=== PATIENT | female | born 1965 | race Caucasian/White ===

== ENCOUNTER 2016-06-14 13:16 | Emergency (ER) | payer OTHER ==
[~2016-06-14] VITALS: Ht 157.5 cm; Wt 108.9 kg
[~2016-06-14 13:16] MED LIST: AUGMENTIN 875 M1 TAB PO; BENZONATATE200 MG PO; BLM PO; FLEXERIL10 MG PO; HYCET 325 MG/1473 ML PO; LOVENOX 4040 MG/0.4 SC; MEDROL DOSEPAK1 PAC PO; MOBIC15 M1 PO; MOBIC15 MG PO; OMEPRAZOLE D/R20 MG PO; PERCOCET 325 MG1 TA2 PO; PROVENTIL0.09 MG/A1 INH; ROBITUSSIN COU237 ML PO; ROBITUSSIN W/CO10 ML PO; TRAMADOL50 MG PO; VICODIN 5-3001 EACH PO; VICODIN5-300 PO
--- NOTE | 2016-06-14 13:31 | ED UPPER/LOWER EXTREMITY COMPL ---
History of Present Illness General Chief Complaint: Lower Extremity Injury Stated Complaint: RT KNEE PAIN Source: patient, old records Exam Limitations: no limitations Vital Signs & Intake/Output Vital Signs & Intake/Output ED Intake and Output 06/15 0000 06/14 1200 Intake Total Output Total Balance Patient 240 lb Weight Weight Reported by Patient Measurement Method Allergies Coded Allergies: erythromycin base (TONGUE SWELLING 06/14/16) Reconcile Medications No Known Home Medications Triage Note: [address] "[address]" [address] AT WORK SUNDAY. WAS EVAL'D AT [employer] ONE AND STATES THEY TOLD HER IT WAS A SPRAIN. STATES SWELLING CONTINUES. AMBULATORY WITH STEADY GAIT. DECLINES OFFER OF MEDS/WHEELCHAIR. WORKMANS COMP COMPLETED Triage Nurses Notes Reviewed? yes Onset: Gradual Duration: day(s): (2), constant Timing: recent history Severity: mild, moderate Severity Numbers: 6 Pain/Injury Location: Right: Knee. Method of Injury: TWISTED Modifying Factors: Improves With: rest. Worsens With: movement. Associated Symptoms: swelling HPI: 50-year-old female presents to ER for evaluation complaining of medial right knee pain aching swelling constant associated with swelling for the past 3 days after she states she twisted her knee while at work. The patient states she went to an urgent care was diagnosed with a sprain. She states that she has been icing elevating and resting however the symptoms worsen. She denies fall to the ground. She denies numbness or tingling no swelling to her calf or calf pain. No hip or foot or ankle pain and no radiation of pain no chest pain shortness of breath no modifying factors or associated symptoms otherwise. (ROSALIND SWANSON) Past History Travel History Traveled to [place] past 21 day No Medical History Any Pertinent Medical History? 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 No (ROSALIND SWANSON) Review of Systems Review of Systems Constitutional: Reports: see HPI. All Other Systems: Reviewed and Negative Comments Review of systems: See HPI, All other systems negative. Constitutional, no chills no fever, no malaise HEENT: No visual changes no sore throat no congestion Cardiovascular: No chest pain , no palpitation Skin: no rashes, no change in skin Respiratory: No dyspnea no cough no sputum GI: No nausea no vomiting, no diarrhea, : No dysuria Muscle skeletal: joint pain, joint swelling, no back pain, no neck pain, Neurologic: No numbness no headache Psych: No stress Heme/endocrine: No bruising Immunology: No lymphadenopathy (ROSALIND SWANSON) Physical Exam Physical Exam General Appearance: well developed/nourished, alert, awake Comments: Well-developed well-nourished patient in no apparent distress. HEENT: Atraumatic, extraocular motion intact Neck: Supple, FROM Back: FROM Cardiovascular: Regular rate and rhythms no murmurs rubs or gallops, Respiratory: Chest nontender.There were no bony deformities, no asymmetry. No respiratory distress. Patient speaking in full complete sentences. Breath sounds clear to auscultation bilaterally: NO W/R/R Upper Extremities: full range of motion Hip/Pelvis: Atraumatic/Stable. FROM. Knee: Atraumatic/stable. mild tenderness medial r knee, No joint swelling, no effusion. No laxity. Negative alisa/anterior drawer test. pain with ROM Leg: Atraumatic. Nontender. No edema, 5 out of 5 strength in the lower extremity, normal dorsiflexion of great toe bilaterally, gross sensation is intact Ankle/Foot: Atraumatic/stable. Skin intact. FROM. No swelling, no effusion. No laxity on exam Pulses: Normal/equal DP/PT pulses bilaterally. Brisk cap refill Neuro: awake, alert, and oriented to person, place and time. There were no obvious focal neurologic abnormalities. Skin: Warm & dry;No appreciable rash on exposed skin Psych: Mood affect normal, normal memory normal judgment. (ROSALIND SWANSON) Progress Differential Diagnosis: compartment syndrome, contusion, dislocation, DVT, fracture, gout, sprain, tendon injury Plan of Care: Orders Procedure Date/time Status Durable Medical Equipment 06/14 1408 Active pt declining anythning for pain when offered. I discussed with the patient at length all of their results, crutches and leg immobilizer provided. I had an extensive conversation regarding need for close follow up with their primary care physician this week as well as return precautions. I answered all of their questions, they feel comfortable with the plan and follow-up care. (ROSALIND SWANSON) Diagnostic Imaging: Viewed by Me: Radiology Read. Discussed w/RAD: Radiology Read. Radiology Impression: PATIENT: LES TODD PRESENT AGE: 50 PATIENT ACCOUNT NO: [id number] : 65 LOCATION: [facility] ORDERING PHYSICIAN: ROSALIND FLANAGAN SERVICE DATE: 06/14/16 EXAM TYPE: RAD - XRY-KNEE COMPLETE RIGHT EXAMINATION: XR KNEE, RIGHT CLINICAL INFORMATION: Pain status-post twisting injury. COMPARISON: Right knee radiographs dated 10/09. TECHNIQUE: Frontal, bilateral oblique and lateral views of the right knee are submitted. FINDINGS: Bony alignment and mineralization are normal. The lateral and medial joint space compartments and the patellofemoral compartment are well-maintained. No acute fracture, dislocation or joint effusion is seen. An old Mis-Stieda lesion is redemonstrated at the site of the medial collateral ligament attachment onto the medial femoral condyle. There is no foreign body. IMPRESSION: 1. No right knee acute fracture, dislocation or joint effusion is seen. 2. There is a Mis-Stieda lesion redemonstrated, consistent with prior medial collateral ligament injury. DICTATED BY: ENOC SEN MD DATE/TIME DICTATED:06/14/161419 NUTRITION WORKER:YULISSA DATE/TIME TRANSCRIBED:06/14/161419 CONFIDENTIAL, DO NOT COPY WITHOUT APPROPRIATE AUTHORIZATION. <Electronically signed in Other Vendor System> SIGNED BY: ENOC SEN MD 06/14/161426 (ROSALIND SWANSON) Departure Departure Disposition: HOME OR SELF CARE Condition: Stable Clinical Impression Primary Impression: Knee sprain Referrals: ANY HOWARD APRN (PCP/Family) ISAURO DIAZ,FACUNDO Dean Additional Instructions: REST, ICE, TYLENOL OR MOTRIN FOR PAIN. FOLLOW UP WITH ORTHOPEDIST DR BOX OR YOUR PMD NEXT WEEK IF SYMPTOMS PERSIST. CRUTCHES WHEN AMBULATORY, KNEE BRACE DISCUSSED. 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 I have also reviewed all the pertinent lab results and diagnostic results. I agree with the findings and the plan of care as documented in the PA's/SMALL ARMS ARTILLERY REPAIRER's documentation. X I have reviewed the ED Record and agree with the PA's/SMALL ARMS ARTILLERY REPAIRER's documentation. [] Additions or exceptions (if any) to the PAs/SMALL ARMS ARTILLERY REPAIRER's note and plan are summarized below: [] (DANY DIAZ,NATALIA)
--- NOTE | 2016-06-14 14:27 | RADIOLOGY REPORT ---
EXAMINATION: XR KNEE, RIGHT CLINICAL INFORMATION: Pain status-post twisting injury. COMPARISON: Right knee radiographs dated 10/09/2013. TECHNIQUE: Frontal, bilateral oblique and lateral views of the right knee are submitted. FINDINGS: Bony alignment and mineralization are normal. The lateral and medial joint space compartments and the patellofemoral compartment are well-maintained. No acute fracture, dislocation or joint effusion is seen. An old Mis-Stieda lesion is redemonstrated at the site of the medial collateral ligament attachment onto the medial femoral condyle. There is no foreign body. IMPRESSION: 1. No right knee acute fracture, dislocation or joint effusion is seen. 2. There is a Mis-Stieda lesion redemonstrated, consistent with prior medial collateral ligament injury.
[2016-06-14 15:06] VITALS: BP 138/80
== END 2016-06-14 15:06 ==
LOC: ERH 13:16
DX: S83.91XA Sprain of unspecified site of right knee, initial encounter (principal); X50.9XXA Other and unspecified overexertion or strenuous movements or postures, initial encounter; Y93.9 Activity, unspecified; Y92.9 Unspecified place or not applicable
CPT/HCPCS: 73562-RT

== ENCOUNTER 2016-06-19 14:56 | Emergency (ER) | payer OTHER ==
[~2016-06-19] VITALS: Ht 157.5 cm; Wt 108.9 kg
[2016-06-19 15:11] VITALS: BP 163/91
--- NOTE | 2016-06-19 16:29 | ED HAND/WRIST INJURY COMPLAINT ---
History of Present Illness General Chief Complaint: Hand or Wrist Injury Stated Complaint: FRACTURED FINGER Source: patient, family, old records Exam Limitations: no limitations Vital Signs & Intake/Output Vital Signs & Intake/Output Vital Signs Date Time Temp Pulse Resp B/P B/P Pulse O2 O2 Flow FiO2 Mean Ox Delivery Rate 06/19 1515 97.7 06/19 1511 97.7 64 16 163/91 95 Room Air Allergies Coded Allergies: erythromycin base (TONGUE SWELLING 06/14/16) Reconcile Medications Naproxen 500 MG TABLET 1 TAB PO BID ANTIINFLAMMATORY (Reported) Pantoprazole Sodium 40 MG TABLET.DR 1 TAB PO DAILY PAIN (Reported) Triage Note: PT STATES SHE SAW SENT IN BY PHYSICIAN ONE AND HER RIGHT HAND RING FINGER IS DISLOCATED ANDL FRACTURED. PT STATES SHE WAS AT WORK AND SHE WAS PUSHING HER TABLE AND HER FINGER GOT STUCK ON TOTES THAT HAD BEEN LINED UP Triage Nurses Notes Reviewed? yes Occurred: just prior to arrival Duration: day(s): (1), constant Timing: recent history Injury Environment: home Severity: mild, moderate Severity Numbers: 6 Pain/Injury Location: Right: 4th finger. Context: blow Modifying Factors: Improves With: rest. Worsens With: movement. Associated Symptoms: none HPI: 50-year-old female presents to ER for evaluation status post sustaining injury to her right fourth finger earlier today while at work. The patient states she was pushing a table on her finger got caught and extended backwards. She states she went to an urgent care presents with x-rays. She states she was told at urgent care that she had a dislocated fractured finger and was sent here to be reduced. The patient states she has a previous injury to that finger several years ago which time she believes she broke it however never sought care. She denies any difficulty with range of motion however feels a "pulling" sensation in her distal finger minor pain 3 out of 10. No numbness or tingling she denies any other injury she is right-hand dominant The patient has gel acrylic nails which she states the nail was pulled backwards which is causing her the most of her pain (ROSALIND SWANSON) Past History Travel History Traveled to [place] past 21 day No Medical History Any Pertinent Medical History? 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 No (ROSALIND SWANSON) Review of Systems Review of Systems Constitutional: Reports: see HPI. All Other Systems: Reviewed and Negative Comments Review of systems: See HPI, All other systems negative. Constitutional, no chills no fever, no malaise HEENT: no sore throat no congestion Cardiovascular: No chest pain , no palpitation Skin: no rashes, no change in skin Respiratory: No dyspnea no cough no sputum GI: No nausea no vomiting, Muscle skeletal: joint pain, no joint swelling, no back pain, no neck pain, Neurologic: No numbness no confusion, no headache Psych: No stress Heme/endocrine: No bruising Immunology: No lymphadenopathy (ROSALIND SWANSON) Physical Exam Physical Exam General Appearance: well developed/nourished, alert, awake Hand Left: normal inspection, normal range of motion Hand Right: normal range of motion, tender, 4th finger Comments: Well-developed well-nourished patient in no apparent distress. HEENT: Atraumatic, extraocular motion intact Neck: Supple, FROM Back: FROM Cardiovascular: Regular rate and rhythms no murmurs rubs or gallops, Respiratory: No respiratory distress. Patient speaking in full complete sentences. Breath sounds clear to auscultation bilaterally: NO W/R/R Shoulder: Atraumaic/Stable. FROM . Elbow: Atraumatic/stable. FROM. No laxity Upper arm/Forearm: Atraumatic. Nontender. No edema, 5 out of 5 drafting layout worker strength noted to bilateral upper extremities Hand/Wrist: Tenderness to palpation over the right fourth dorsal finger, patient has full flexion and extension of the finger herself passive and active Atraumatic/stable. Skin intact. FROM Pulses: Normal/equal radial pulses bilaterally. Brisk cap refill LOWER Extremities: full range of motion Neuro: awake, alert, and oriented to person, place and time. There were no obvious focal neurologic abnormalities. Skin: Warm & dry;No appreciable rash on exposed skin Psych: Mood affect normal, normal memory normal judgment. (ROSALIND SWANSON) Progress Differential Diagnosis: contusion, compartment syndrome, dislocation, fracture, sprain Plan of Care: Current Medications Sig/Blanka Start time Last Medication Dose Stop Time Status Admin Oxycodone HCl 5 MG ONCE ONE 06/19 1629 UNVr (Roxicodone) 06/19 1630 The x-ray was reviewed on the report is as follows: RIGHT X-RAY FINGER-MINIMUM 2 VIEWS: Severe chronic fracture with deformity involving the fourth distal phalanx. Deformity of the distal interphalangeal joint. No prior study. IMPRESSION: Chronic fracture with deformity. Recurrent or acute injury not excluded. \\ \\The x-ray was reviewed with Dr. montes who agrees that this is a chronic injury the patient has full range of motion of the finger Dermabond was applied to keep the acrylic nail down in a finger splint was applied which I advised the patient where all times. Discussed with her the possibility of a tendon injury still exists and close follow-up with hand specialist Dr. Acevedo, I advised return anytime sooner with any concerns answered all of her questions she feels comfortable plan cleared for discharge (ROSALIND SWANSON) Departure Departure Time of Disposition: 1653 Disposition: HOME OR SELF CARE Condition: Stable Clinical Impression Primary Impression: Finger sprain Referrals: ANY HOWARD APRN (PCP/Family) JERZY DIAZ,ISHA Additional Instructions: rest, ice, tylenol for pain. finger splint as dsicussed for at least one week. follow up with hand specialist dr acevedo if symptoms persist. Departure Forms: Customer Survey General Discharge Information (ROSALIND SWANSON) PA/SEAFOOD FARMER Co-Sign Statement Statement: ED Attending supervision documentation- [] I saw and evaluated the patient. I have also reviewed all the pertinent lab results and diagnostic results. I agree with the findings and the plan of care as documented in the PA's/SEAFOOD FARMER's documentation. [X] I have reviewed the ED Record and agree with the PA's/SEAFOOD FARMER's documentation. [] Additions or exceptions (if any) to the PAs/SEAFOOD FARMER's note and plan are summarized below: [] (TARI MONTES DO)
[2016-06-19] MEDS ORDERED: PANTOPRAZOLE SO40 M1 PO (16:38)
[2016-06-19] MEDS ORDERED: NAPROXEN500 M2 PO (16:38)
== END 2016-06-19 17:11 ==
LOC: ERH 14:56
DX: S63.614A Unspecified sprain of right ring finger, initial encounter (principal); W23.1XXA Caught, crushed, jammed, or pinched between stationary objects, initial encounter; Y92.9 Unspecified place or not applicable; Y93.9 Activity, unspecified

== ENCOUNTER 2016-07-01 06:46 | Emergency (ER) | payer OTHER ==
[~2016-07-01] VITALS: Ht 157.5 cm; Wt 113.4 kg
[~2016-07-01 06:46] MED LIST changes: +NAPROXEN500 M2 PO; +PANTOPRAZOLE SO40 M1 PO
[2016-07-01 06:57] VITALS: BP 146/82
[2016-07-01] MEDS ORDERED: [UNRECOGNIZED DRUG - OTHER] PO (07:34)
[2016-07-01] MEDS ORDERED: PROAIR HFA8.5 GM INH (07:34)
[2016-07-01] MEDS ORDERED: CEFUROXIME500 MG PO (07:34)
--- NOTE | 2016-07-01 07:35 | ED DYSPNEA/ASTHMA COMPLAINT ---
History of Present Illness General Chief Complaint: Dyspnea (COPD, CHF, Other) Stated Complaint: " I THINK I HAVE BRONCHITIS,SOB, SPO2 97%" Source: patient Exam Limitations: no limitations Vital Signs & Intake/Output Vital Signs & Intake/Output Vital Signs Date Time Temp Pulse Resp B/P B/P Pulse O2 O2 Flow FiO2 Mean Ox Delivery Rate 07/01 0700 97 Room Air 07/01 0657 97.3 65 18 146/82 97 Room Air Allergies Coded Allergies: erythromycin base (TONGUE SWELLING 06/14/16) Reconcile Medications Naproxen 500 MG TABLET 1 TAB PO BID ANTIINFLAMMATORY (Reported) Pantoprazole Sodium 40 MG TABLET. 1 TAB PO DAILY PAIN (Reported) Triage Note: COUGH CHEST CONGESTION STARTED 2 WEEKS AGO Triage Nurses Notes Reviewed? yes Onset: Gradual Duration: day(s):, continues in ED Severity: severe HPI: Patient presents for evaluation of possible bronchitis. Patient states she's been having a nonproductive cough over the past 2 weeks that has not responded to [id number] cough and cold preparations. She states she also has wheezing from time to time and feels short of breath. She spoke with her primary care physician recommended the jvqs-azl-adfsiro medications such as Mucinex. She states her symptoms have worsened with the onset of the allergy season. Has a distant history of smoking. Symptoms worsened with exertion and at night. Past History Travel History Traveled to [place] past 21 day No Medical History Any Pertinent Medical History? 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 No Review of Systems Review of Systems Constitutional: Reports: no symptoms. EENTM: Reports: no symptoms. Respiratory: Reports: see HPI. Cardiovascular: Reports: no symptoms. GI: Reports: no symptoms. Genitourinary: Reports: no symptoms. Musculoskeletal: Reports: no symptoms. Skin: Reports: no symptoms. Neurological/Psychological: Reports: no symptoms. Hematologic/Endocrine: Reports: no symptoms. Immunologic/Allergic: Reports: no symptoms. All Other Systems: Reviewed and Negative Physical Exam Physical Exam Respiratory: SEE BELOW Comments: Gen.: Well-nourished, well-developed, no acute respiratory distress. Head: Normocephalic, atraumatic. Eyes: Normal inspection bilaterally Ears: Normal inspection bilaterally Nose: Normal inspection Throat/mouth : Moist mucosa Neck: Supple, full range of motion, no goiter Heart: Regular rate and rhythm, no murmurs rubs or gallops Lungs: Good bilateral air entry with scattered end expiratory wheezing but no rales or rhonchi Chest: Nontender Back: Normal range of motion Abdomen: Soft, nontender, nondistended, normal bowel sounds Extremities: Normal range of motion grossly, equal radial pulses, no cyanosis clubbing or edema Neurologic: Cranial nerves grossly intact, speech is clear Skin: warm and dry Psychiatric: Calm, cooperative, no apparent delusions or hallucinations Core Measures ACS in differential dx? No Severe Sepsis Present: No Septic Shock Present: No Progress Differential Diagnosis: bronchitis, CHF, COPD, pneumonia Plan of Care: See discharge instructions Initial ED EKG: none Departure Departure Disposition: HOME OR SELF CARE Condition: Stable Clinical Impression Primary Impression: Bronchitis Referrals: ANY HOWARD APRN (PCP/Family) Additional Instructions: Discontinue any icud-ztj-qfbnilv medications you are already taking. Begin a nonsedating antihistamine decongestant combination such as Claritin-D, Zyrtec-D or Nova-D. Robitussin-AC as prescribed for cough. Albuterol metered-dose inhaler as needed for wheezing or cough. Ceftin as prescribed (an antibiotic). Follow-up with your primary care physician if not improved in one week. Return if any concerns or sudden worsening. Thank you for choosing the [facility] for your care. It was a pleasure to serve you today. Moises Yen M.D. [facility] Departure Forms: Customer Survey General Discharge Information Prescriptions: Current Visit Scripts Cefuroxime Axetil (Cefuroxime) 1 TAB PO BID #14 TAB Albuterol Sulfate (Proair Hfa) 2-4 INH INH Q6P PRN ASTHMA #1 INHAL Codeine Phosphate/Guaifenesi (Guaifenesin-Codeine Syrup) 5 ML PO Q6P PRN COUGH #200 ML Critical Care Note Critical Care Note Critical Care Time: non-applicable
== END 2016-07-01 07:42 ==
LOC: ERH 06:46
DX: J40 Bronchitis, not specified as acute or chronic (principal); Z87.891 Personal history of nicotine dependence